=== PATIENT | male | born 1965 | race Caucasian/White ===

== ENCOUNTER 2020-12-30 07:38 | Emergency (ER) | payer OTHER, SELFPAY ==
--- NOTE | 2020-12-30 07:54 | DI.RAD.S_ITS ---
PROCEDURE: XR CHEST 1V INDICATIONS: Chest pain TECHNIQUE: One view of the chest was acquired. COMPARISON: None. FINDINGS: Surgical changes and devices: None. Lungs and pleura: Lungs are clear. No pleural effusions or pneumothorax. Mediastinum: Mediastinal contours appear normal. Heart size is normal. Bones and chest wall: No suspicious bony lesions. Overlying soft tissues appear unremarkable. IMPRESSION: No acute disease. Dictated by: Jv Mallory M.D. on 12/30/2020 at 8:52 Approved by: Jv Mallory M.D. on 12/30/2020 at 8:52
--- NOTE | 2020-12-30 08:04 | ED.GENADULT ---
HPI - General Adult General Chief complaint: Headache Stated complaint: HEADACHE FOR ABOUT 4 DAYS, VOMITING FOR 2 Time Seen by Provider: 12/30/20 07:52 Source: patient Mode of arrival: Ambulatory Limitations: no limitations History of Present Illness HPI narrative: Patient is a 55-year-old male sent over from the walk-in clinic for evaluation of a headache and chest discomfort. He states he has had chest discomfort for the past 3 days. He states this is day 4. He woke up with the discomfort. States it has been constant for this period of time. Does not seem to get worse with palpation or movement. Somewhat worse with deep breathing. During this time he has also had a headache although he states that this has greatly improved since its onset. Describes it as the top of his head. He had a father that had a heart attack in his late 40s. He states he had a workup for his heart approximately 20 years ago. Has had some nausea but no vomiting. No change in bowel habits. Related Data Allergies Allergy/AdvReac Type Severity Reaction Status Date / Time No Known Drug Allergies Allergy Verified 12/30/20 08:12 Review of Systems Constitutional Constitutional: Denies chills, Denies fatigue, Denies fever(s) and Reports headache(s) Eyes Eyes: Denies change in vision ENT Ears, Nose, Mouth, and Throat: Denies vertigo, Denies dizziness, Reports headache(s) and Denies sore throat Cardiovascular Cardiovascular: Reports chest pain, Denies rapid heart rate, Denies irregular heart rhythm and Denies dyspnea Respiratory Respiratory: Denies cough and Denies dyspnea Gastrointestinal Gastrointestinal: Denies abdominal pain, Denies change in bowel habits, Reports nausea and Denies vomiting Genitourinary Genitourinary: Denies dysuria Genitourinary: Denies dysuria Musculoskeletal Musculoskeletal: Denies arthralgias and Denies myalgias Integumentary/Breasts Skin/Breast: Denies rash Neurologic Neurologic: Denies abnormal speech, Denies behavioral changes, Denies vertigo, Denies dizziness and Reports headache(s) Comments: Tinnitus Psychiatric Psychiatric: Denies behavioral changes Endocrine Endocrine: Denies fatigue Hematologic/Lymphatic On Anticoagulants: No Allergic/Immunologic Allergic/Immunologic: Denies urticaria Patient History Medical History Patient denies medical problems Social History lives independently: Yes Smoking Status: Current every day smoker Exam Initial Vital Signs Initial Vital Signs: Vital Signs Temperature 98.6 F 12/30/20 08:06 Pulse Rate 80 12/30/20 08:06 Respiratory Rate 16 12/30/20 08:06 Blood Pressure 178/115 H 12/30/20 08:06 Pulse Oximetry 98 12/30/20 08:06 Const General: cooperative and comfortable Limitations: mental status not altered HENMT Head: normal to inspection and normocephalic Ears: TM's normal bilaterally Eyes General: appearance normal, both eyes and all related structures Chest Chest: No tenderness Resp Effort & Inspection: normal respiratory effort Auscultation: clear to auscultation bilaterally Cardio Rate: regular rate Rhythm: regular rhythm GI Inspection: non-distended Palpation: soft Skin Lesions: no lesions Rashes: no rashes Neuro General: patient alert, patient awake and patient oriented x3 Cognition: normal cognition Speech: speech normal Extrem General: normal to inspection, capillary refill normal and No edema Psych Appearance: grossly normal and well kempt Scores HEART Score Heart Score history: Slightly Suspicious Heart Score EKG: Normal Heart Score Age: 45-64 years old Heart Score risk factors: 1-2 risk factors Heart Score troponin: < or = to normal limit Heart Score Total: 2 Course Orders Ordered: ED Orders 12/30/20 07:54 XR chest 1V Stat 12/30/20 07:59 EKG-12 Lead Stat 12/30/20 08:00 Complete Blood Count AUTO DIFF Stat Comprehensive Metabolic Panel Stat Lipase Stat Partial Thromboplastin Time Stat Prothrombin Time INR Stat Troponin & CK Cardiac Panel Stat 12/30/20 08:22 COVID19 - ADMIT (EARLY [employer] swab/PCR) Stat Discontinued Medications Aspirin (Aspirin 81 Mg Chew Tab) 324 mg PO NOW ONE Stop: 12/30/20 08:08 Last Admin: 12/30/20 08:20 Dose: 324 mg Documented by: GAVINO Vital Signs Vital signs: Vital Signs - 8 hr 12/30/20 08:06 Temperature 98.6 F Pulse Rate 80 Respiratory Rate 16 Blood Pressure 178/115 H Pulse Oximetry 98 Medical Decision Making Lab Data Lab results reviewed: Yes I reviewed the patient's lab results. Result diagrams: 12/30/20 08:00 12/30/20 08:00 Labs: Lab Results 12/30/20 12/30/20 12/30/20 Range/Units 08:00 08:00 08:00 WBC 8.9 (4.5-11.0) X10^3/uL RBC 4.84 (4.5-5.9) X10^6/uL Hgb 16.1 (13.5-17.5) g/dL Hct 46.0 (41-53) % MCV 95.0 (80-100) fL MCH 33.3 (26-34) PG MCHC 35.0 (30-36) % RDW 13.0 (11.6-14.8) % Plt Count 234 (150-400) X10^3/uL Neut % (Auto) 59.6 (50-75) % Lymph % (Auto) 24.2 L (25-40) % [place] % (Auto) 10.0 (3-14) % Eos % (Auto) 5.5 H (2-4) % Baso % (Auto) 0.7 (0-2) % Neut # (Auto) 5300 (1124-4895) /uL Lymph # (Auto) 2200 (3293-9904) /uL [place] # (Auto) 900 (0-900) /uL Eos # (Auto) 500 H (0-450) /uL Baso # (Auto) 100 (0-100) /uL PT 11.0 (10.1-12.7) SECONDS INR 1.0 (0.9-1.3) APTT 34 (26.4-36.2) SECONDS Sodium 136 L (137-145) mmol/L Potassium 3.8 (3.4-5.1) mmol/L Chloride 101 (98-107) mmol/L Carbon Dioxide 26 (22-32) mmol/L BUN 13 (9-20) mg/dL Creatinine 1.06 (0.66-1.25) mg/dL Estimated GFR > 60.0 (>60) mL/min BUN/Creatinine Ratio 12.3 (6-22) Glucose 128 H (70-100) mg/dL Calcium 10.0 (8.4-10.2) mg/dL Total Bilirubin 1.5 H (0.2-1.3) mg/dL AST 38 (17-59) IU/L ALT 31 (<50) IU/L Alkaline Phosphatase 83 (38-126) U/L Total Creatine Kinase (55-170) U/L CK-MB (CK-2) CK-MB (CK-2) Rel Index Troponin I (0.01-0.034) ng/mL Total Protein 7.9 (6.3-8.2) g/dL Albumin 4.7 (3.5-5.0) g/dL Globulin 3.2 (1.7-4.1) g/dL Albumin/Globulin Ratio 1.5 (1.0-2.8) Lipase 86 (23-300) U/L SARS-CoV-2 (PCR) (Negative) 12/30/20 12/30/20 Range/Units 08:00 08:22 WBC (4.5-11.0) X10^3/uL RBC (4.5-5.9) X10^6/uL Hgb (13.5-17.5) g/dL Hct (41-53) % MCV (80-100) fL MCH (26-34) PG MCHC (30-36) % RDW (11.6-14.8) % Plt Count (150-400) X10^3/uL Neut % (Auto) (50-75) % Lymph % (Auto) (25-40) % [place] % (Auto) (3-14) % Eos % (Auto) (2-4) % Baso % (Auto) (0-2) % Neut # (Auto) (2416-1666) /uL Lymph # (Auto) (7483-0744) /uL [place] # (Auto) (0-900) /uL Eos # (Auto) (0-450) /uL Baso # (Auto) (0-100) /uL PT (10.1-12.7) SECONDS INR (0.9-1.3) APTT (26.4-36.2) SECONDS Sodium (137-145) mmol/L Potassium (3.4-5.1) mmol/L Chloride (98-107) mmol/L Carbon Dioxide (22-32) mmol/L BUN (9-20) mg/dL Creatinine (0.66-1.25) mg/dL Estimated GFR (>60) mL/min BUN/Creatinine Ratio (6-22) Glucose (70-100) mg/dL Calcium (8.4-10.2) mg/dL Total Bilirubin (0.2-1.3) mg/dL AST (17-59) IU/L ALT (<50) IU/L Alkaline Phosphatase (38-126) U/L Total Creatine Kinase 71 (55-170) U/L CK-MB (CK-2) TNP CK-MB (CK-2) Rel Index TNP Troponin I < 0.012 (0.01-0.034) ng/mL Total Protein (6.3-8.2) g/dL Albumin (3.5-5.0) g/dL Globulin (1.7-4.1) g/dL Albumin/Globulin Ratio (1.0-2.8) Lipase (23-300) U/L SARS-CoV-2 (PCR) Negative (Negative) Imaging Data Chest x-ray: Radiologist's Impression: [address] [id number] ReportSigned Patient: Vidal HarrisMR#: [id number]: 1965Acct:[id number]/Sex: 55 / MDate of Service: 12/30/20Loc: EDAccession Number: [id number] Procedure: XR chest 1V Ordering Provider: Heriberto Gleason D.O. PROCEDURE: XR CHEST 1V INDICATIONS: Chest pain TECHNIQUE: One view of the chest was acquired. COMPARISON: None. FINDINGS: Surgical changes and devices: None. Lungs and pleura: Lungs are clear. No pleural effusions or pneumothorax. Mediastinum: Mediastinal contours appear normal. Heart size is normal. Bones and chest wall: No suspicious bony lesions. Overlying soft tissues appear unremarkable. IMPRESSION: No acute disease. Dictated by: Jv Mallory M.D. on 12/30/2020 at 8:52 Approved by: Jv Mallory M.D. on 12/30/2020 at 8:52 ECG Data Attestation: I personally reviewed and interpreted this ECG as follows: Prior ECG tracings: not available for review Interpretation: Sinus rhythm Ventricular rate 93 Normal axis Normal QRS Normal QTC No ST T wave changes MDM Narrative Medical decision making narrative: Patient does have a low risk heart score. His EKG is unremarkable. Troponin is negative after 3 days of consistent symptoms. He does not have a primary doctor in the area. He does have a significant family history with a father who at the age of 48 because of an RI. We discussed being admitted to the hospital for further evaluation and stress testing versus being discharged home. We discussed the risks and benefits of each of these. He opted to be discharged home after expressing understanding of the risks and benefits. Low suspicion for dissection. Low suspicion for pulmonary embolism. Patient was given strict return precautions. He expressed understanding and agreement. Discharge Plan Departure Patient Disposition: Home Clinical Impression: Headache, Chest pain, Hypertension Instructions: DI for Chest Pain Activity Restrictions/Additional Instructions: I recommend that you contact the health resources coordinator here at the hospital at [phone]. This individual can help you establish a primary doctor in the area. After our discussion you opted to be discharged home rather than be admitted for further risk stratification testing to include a stress test. I recommend that you establish care with a primary doctor and discuss the indications for this testing as an outpatient. Please return to the emergency department any time for new or worsening symptoms Referrals: Miscellaneous,[facility] [Primary Care Provider] -
[2020-12-30 08:06] VITALS: BP 178/115; PULSE 80; RESP 16; TEMP 37; O2SAT 98; BMI 28.5
[2020-12-30 08:12] LABS: Add Manual Diff / Slide Review NO; Basophils Absolute Auto 100 /uL (0-100); Basophils Percent Auto 0.7 % (0-2); Eosinophils Absolute Auto 500 /uL (0-450); Eosinophils Percent Auto 5.5 % (2-4); Hemoglobin 16.1 g/dL (13.5-17.5); Lymphocytes Absolute Auto 2200 /uL (1100-4500); Lymphocytes Percent Auto 24.2 % (25-40); Mean Corpuscular Hemoglobin 33.3 PG (26-34); Monocytes Absolute Auto 900 /uL (0-900); Neutrophils Absolute Auto 5300 /uL (1500-7000); Neutrophils Percent Auto 59.6 % (50-75); Platelet Count 234 X10^3/uL (150-400); Red Blood Cell Count 4.84 X10^6/uL (4.5-5.9); White Blood Cell Count 8.9 X10^3/uL (4.5-11.0)
[2020-12-30 08:19] LABS: PTT Partial Thromboplastin Tim 34 SECONDS (26.4-36.2)
[2020-12-30] MEDS: ASPIRIN 81 MG CHEW TAB 324 MG PO (08:20)
[2020-12-30 08:22] LABS: Alanine Aminotransferase 31 IU/L (<50); Albumin 4.7 g/dL (3.5-5.0); Albumin Globulin Ratio 1.5 (1.0-2.8); Alkaline Phosphatase 83 U/L (38-126); Aspartate Aminotransferase 38 IU/L (17-59); BUN Creatinine Ratio 12.3 (6-22); Bilirubin Total 1.5 mg/dL (0.2-1.3); Blood Urea Nitrogen 13 mg/dL (9-20); Carbon Dioxide 26 mmol/L (22-32); Chloride 101 mmol/L (98-107); Estimated Glomerular Filt Rate > 60.0 mL/min (>60); Globulin 3.2 g/dL (1.7-4.1); Glucose 128 mg/dL (70-100); HEMOLYSIS < 15 (0-50); Lipase 86 U/L (23-300); Potassium 3.8 mmol/L (3.4-5.1); Sodium 136 mmol/L (137-145); Total Protein 7.9 g/dL (6.3-8.2)
[2020-12-30 08:23] LABS: Creatine Kinase 71 U/L (55-170)
[2020-12-30 08:34] LABS: Troponin I < 0.012 ng/mL (0.01-0.034)
[2020-12-30 08:48] LABS: COVID19 - ADMIT (NP swab/PCR) Negative (Negative)
[2020-12-30 09:30] VITALS: BP 181/93; PULSE 83; RESP 16; O2SAT 96
== END 2020-12-30 09:35 | disposition home or self-care (01) ==
PROVIDERS: Emergency Provider Emergency Medicine
DX: R07.9 Chest pain, unspecified (principal); R51.9 Headache, unspecified; I10 Essential (primary) hypertension; Z20.822 Contact with and (suspected) exposure to COVID-19
CPT/HCPCS: 36415; 71045; 80053; 82550; 83690; 84484; 85025; 85610; 85730; 87635; 93005; 99284; C9803

== ENCOUNTER → 2024-01-18 10:58 | Outpatient (CLI) | payer OTHER, SELFPAY ==
[2024-01-18 11:49] LABS: Influenza A - CEPHEID Flu A NEGATIVE (NEGATIVE); Influenza B - CEPHEID Flu B NEGATIVE (NEGATIVE); Respiratory Syncytial Virus Negative (Negative)
[2024-01-18 12:00] LABS: COVID-19 CEPHEID 4-PLEX PCR Negative (Negative)
== END ==
PROVIDERS: Visit Provider Physician Assistant
DX: R05.1 Acute cough (principal)
CPT/HCPCS: 0241U

== ENCOUNTER → 2024-01-18 11:10 | Outpatient (CLI) | payer OTHER, SELFPAY ==
[2024-01-18 12:41] LABS: Add Manual Diff / Slide Review NO; Basophils Absolute Auto 100 /uL (0-100); Basophils Percent Auto 0.8 % (0-2); Eosinophils Absolute Auto 300 /uL (0-450); Eosinophils Percent Auto 3.5 % (2-4); Hematocrit 43.1 % (41-53); Lymphocytes Absolute Auto 2300 /uL (1100-4500); Lymphocytes Percent Auto 25.2 % (25-40); Mean Corpuscular HGB Conc 34.9 % (30-36); Mean Corpuscular Volume 97.5 fL (80-100); Monocytes Absolute Auto 1100 /uL (0-900); Neutrophils Absolute Auto 5300 /uL (1500-7000); Neutrophils Percent Auto 58.5 % (50-75); Platelet Count 294 X10^3/uL (150-400); Red Blood Cell Count 4.42 X10^6/uL (4.5-5.9); White Blood Cell Count 9.1 X10^3/uL (4.5-11.0)
[2024-01-18 13:07] LABS: Alanine Aminotransferase 20 IU/L (<50); Albumin 4.3 g/dL (3.5-5.0); Albumin Globulin Ratio 1.7 (1.0-2.8); Alkaline Phosphatase 77 U/L (38-126); Aspartate Aminotransferase 26 IU/L (17-59); BUN Creatinine Ratio 10.4 (6-22); Bilirubin Total 0.8 mg/dL (0.2-1.3); Blood Urea Nitrogen 11 mg/dL (9-20); Calcium 9.3 mg/dL (8.4-10.2); Carbon Dioxide 28 mmol/L (22-32); Chloride 101 mmol/L (98-107); Estimated Glomerular Filt Rate > 60 mL/min (>60); Globulin 2.6 g/dL (1.7-4.1); Glucose 103 mg/dL (70-100); HDL Cholesterol 37 mg/dL (40-60); Potassium 4.4 mmol/L (3.4-5.1); Sodium 138 mmol/L (137-145); Total Protein 6.9 g/dL (6.3-8.2); Triglycerides 126 mg/dL (35-150)
[2024-01-18 13:09] LABS: HEMOLYSIS < 15 (0-50)
[2024-01-18 13:22] LABS: Cholesterol 182 mg/dL (140-199); LDL Cholesterol Calculated 120 mg/dL (<100)
== END ==
LOC: LAB 11:11
PROVIDERS: Referring Provider Physician Assistant; Visit Provider Physician Assistant
DX: R05.1 Acute cough (principal); R21 Rash and other nonspecific skin eruption; I10 Essential (primary) hypertension; F17.200 Nicotine dependence, unspecified, uncomplicated; Z12.5 Encounter for screening for malignant neoplasm of prostate
CPT/HCPCS: 0241U; 36415; 80053; 80061; 85025; G0103

== ENCOUNTER 2025-04-08 11:11 | Emergency (ER) | payer OTHER, SELFPAY ==
[2025-04-08] VITALS (15 sets, daily range): BP systolic 148–218; BP diastolic 77–138; PULSE 77–130; RESP 14–24; TEMP 36.6; O2SAT 92–96; BMI 30.5
--- NOTE | 2025-04-08 11:32 | DI.RAD.S_ITS ---
PROCEDURE: XR CHEST 1V INDICATIONS: chest pain TECHNIQUE: One view of the chest was acquired. COMPARISON: [facility], CR, XR CHEST 1V, 12/30/2020, 7:57. FINDINGS: Surgical changes and devices: None. Lungs and pleura: Lungs are clear. No pleural effusions or pneumothorax. Mediastinum: Mediastinal contours appear normal. Heart size is normal. Bones and chest wall: No suspicious bony lesions. Overlying soft tissues appear unremarkable. IMPRESSION: No acute cardiopulmonary abnormality is seen. Dictated by: Tan Foster M.D. on 04/08/2025 at 11:16 Approved by: Tan Foster M.D. on 04/08/2025 at 11:17
--- NOTE | 2025-04-08 11:32 | EKG_ITS ---
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
[2025-04-08] MEDS: METOPROLOL IR 25 MG TABLET 50 MG PO (11:53)
[2025-04-08] MEDS: SODIUM CHLORIDE 0.9% 1,000 ML 1000 ML IV (11:53)
[2025-04-08 11:56] LABS: Alanine Aminotransferase 54 IU/L (<50); Albumin 4.9 g/dL (3.5-5.0); Albumin Globulin Ratio 1.3 (1.0-2.8); Alkaline Phosphatase 88 U/L (38-126); Blood Urea Nitrogen 20 mg/dL (9-20); Calcium 9.9 mg/dL (8.4-10.2); Carbon Dioxide 22 mmol/L (22-32); Chloride 95 mmol/L (98-107); Estimated Glomerular Filt Rate 40 mL/min (>60); Globulin 3.8 g/dL (1.7-4.1); Glucose 124 mg/dL (70-99); HEMOLYSIS 22 (0-50); Lipase 157 U/L (23-300); Magnesium 1.6 mg/dL (1.6-2.3); Potassium 3.8 mmol/L (3.4-5.1); Sodium 132 mmol/L (137-145); Total Protein 8.7 g/dL (6.3-8.2)
[2025-04-08 12:08] LABS: NT-proBNP (BNP-Adult 18+) 217 pg/mL (<125); Troponin I 0.023 ng/mL (0.01-0.034)
[2025-04-08 12:13] LABS: Procalcitonin 0.155 ng/mL (<0.5)
[2025-04-08 12:28] LABS: Add Manual Diff / Slide Review NO; Hematocrit 49.6 % (41-53); Hemoglobin 18.0 g/dL (13.5-17.5); Lymphocytes Absolute Auto 2000 /uL (1100-4500); Mean Corpuscular HGB Conc 36.3 % (30-36); Mean Corpuscular Hemoglobin 35.8 PG (26-34); Mean Corpuscular Volume 98.6 fL (80-100); Platelet Count 174 X10^3/uL (150-400)
[2025-04-08 12:30] LABS: Rouleaux 1+
--- NOTE | 2025-04-08 14:54 | ED_ITS ---
HPI - Arrhythmia/Palpitations General Chief Complaint: Arrhythmia/Palpitations Stated Complaint: Heart palpitations/weakness/vomiting Time Seen by Provider: 04/08/25 11:21 Source: patient Mode of arrival: Ambulatory History of Present Illness HPI narrative: 59-year-old gentleman who does not typically see physicians comes in complaining of nausea and vomiting for the last couple of days intermittent chest pain significant dizziness while he was driving today and so weak that he had trouble getting ready for work. He notes that had a father who of a heart attack at the age of 48 which is a significant turn for him. He has high blood pressure and has chosen not to treat it. On arrival use complaining of some chest tightness and last night enough pain in the left chest that he had a difficult time sleeping. His nausea and vomiting have resolved. He is tachycardic up to 140 and initial blood pressure is 170/100. Related Data Previous Rx's ?Medication ?Instructions ?Recorded albuterol sulfate 90 mcg/actuation 2 puff inhalation Q 4-6H PRN 01/18/24 aerosol inhaler shortness of breath or wheez ing #6.7 grams benzonatate 200 mg capsule 200 mg PO TID PRN cough #30 caps 01/18/24 guaifenesin 1,200 mg tablet, 1,200 mg PO Q12H #30 tabs 01/18/24 extended release 12 hr lisinopril 20 mg tablet 20 mg PO DAILY #30 tabs 12/29 09/22 triamcinolone acetonide 0.1 % See Rx Instructions topi radha BID 01/18/24 topical cream #80 grams metoprolol tartrate 50 mg tablet 50 mg PO BID #180 tab s 04/08/25 Allergies Allergy/AdvReac Type Severity Reaction Status Date / Time No Known Drug Allergies Allergy Verified 04/08/25 11:25 Review of Systems Review of Systems Narrative: Pertinent positive and negative findings as per HPI Patient History Medical History Hypertension Patient denies medical problems Social History lives independently: Yes Smoking Status: Current every day smoker alcohol intake frequency: 0-2 drinks per day Exam Initial Vital Signs Initial Vital Signs: Vital Signs Temperature 98 F 04/08/25 11:17 Pulse Rate 130 H 08/10/25 11:17 Respiratory Rate 22 04/08/25 11:17 Blood Pressure 218/138 H 04/08/25 11:17 Pulse Oximetry 96 04/08/25 11:17 Oxygen Delivery Method Room Air 04/08/25 11:17 General: Healthy appearing, in no acute distress. Able to give a complete and coherent history. Well-nourished well-developed HEENT: Moist mucous membranes, normal sclera with reactive pupils, Neck: No JVD, supple Respiratory: Lungs are clear to auscultation, no wheezing no rales no rhonchi. Full and symmetrical air movement, no reproducible chest pain Cardiac: Tachycardic but otherwise Regular rate and rhythm no murmurs Abdomen: Soft, nontender, no rebound or guarding, no flank pain Skin: Warm and dry, no rashes Neurologic: Grossly neurologically intact with no obvious asymmetries or abnormalities Extremities: No trauma, well perfused Psych: Cooperative, appropriate insight and affect Course Orders Ordered: ED Orders 04/08/25 11:32 XR chest 1V Stat Urinalysis and Microscopic Stat EKG-12 Lead Stat 04/08/25 11:35 Complete Blood Count AUTO DIFF Stat Comprehensive Metabolic Panel Stat D Dimer Stat Lipase Stat Magnesium Stat NT-proBNP (BNP-Adult 18+) Stat Procalcitonin Stat Troponin I Stat Discontinued Medications Sodium Chloride (Normal Saline 0.9%) 1,000 mls @ 1,000 mls/hr IV BOLUS ONE Stop: 04/08/25 12:30 Last Infusion: 04/08/25 13:06 Dose: Infused Documented By: Admin: 04/08/25 11:53 Dose: 1,000 mls/hr Documented By: Metoprolol Tartrate (Metoprolol Ir 25 Mg Tablet) 50 mg PO NOW ONE Stop: 04/08/25 11:35 Last Admin: 04/08/25 11:53 Dose: 50 mg Documented By: Ondansetron HCl (Ondansetron 4 Mg/2 Ml Inj) 4 mg IV NOW ONE Stop: 04/08/25 11:32 Last Admin: 04/08/25 12:07 Dose: Not Given Documented By: Vital Signs Vital signs: Vital Signs - 8 hr 04/08/25 11:17 04/08/25 11:28 04/08/25 11:30 Temperature 98 F Pulse Rate 130 H 115 H 111 H Respiratory Rate 22 23 Blood Pressure 218/138 H Pulse Oximetry 96 95 95 Oxygen Delivery Method Room Air 04/08/25 12:00 04/08/25 12:09 04/08/25 12:09 Temperature Pulse Rate 107 H 97 H Respiratory Rate 22 22 Blood Pressure 173/111 H Pulse Oximetry 92 94 Oxygen Delivery Method 04/08/25 12:30 04/08/25 12:30 04/08/25 13:00 Temperature Pulse Rate 95 H Respiratory Rate 21 Blood Pressure 178/106 H 167/108 H Pulse Oximetry 94 Oxygen Delivery Method 04/08/25 13:00 04/08/25 13:30 04/08/25 13:30 Temperature Pulse Rate 87 85 Respiratory Rate 21 22 Blood Pressure 163/110 H Pulse Oximetry 94 93 Oxygen Delivery Method 04/08/25 14:00 04/08/25 14:00 Temperature Pulse Rate 77 Respiratory Rate 14 Blood Pressure 162/99 H Pulse Oximetry 94 Oxygen Delivery Method MDM - Arrhythmia/Palpitations Lab Data 04/08/25 11:35 04/08/25 11:35 Labs: Lab Results 04/08/25 Range/Units 11:35 WBC 10.6 (4.5-11.0) X10^3/uL RBC 5.03 (4.5-5.9) X10^6/uL Hgb 18.0 H (13.5-17.5) g/dL Hct 49.6 (41-53) % MCV 98.6 (80-100) fL MCH 35.8 H (26-34) PG MCHC 36.3 H (30-36) % RDW 13.3 (11.6-14.8) % Plt Count 174 (150-400) X10^3/uL Neut % (Auto) 69.1 (50-75) % Lymph % (Auto) 18.5 L (25-40) % [place] % (Auto) 11.5 (3-14) % Eos % (Auto) 0.2 L (2-4) % Baso % (Auto) 0.7 (0-2) % Neut # (Auto) 7300 H (8680-5104) /uL Lymph # (Auto) 2000 (2613-9566) /uL [place] # (Auto) 1200 H (0-900) /uL Eos # (Auto) 0 (0-450) /uL Baso # (Auto) 100 (0-100) /uL RBC Morphology See below Rouleaux 1+ H D-Dimer < 215 (<500) ng/ml Sodium 132 L (137-145) mmol/L Potassium 3.8 (3.4-5.1) mmol/L Chloride 95 L (98-107) mmol/L Carbon Dioxide 22 (22-32) mmol/L BUN 20 (9-20) mg/dL Creatinine 1.90 H (0.66-1.25) mg/dL Estimated GFR 40 L (>60) mL/min BUN/Creatinine Ratio 10.5 (6-22) Glucose 124 H (70-99) mg/dL Calcium 9.9 (8.4-10.2) mg/dL Magnesium 1.6 (1.6-2.3) mg/dL Total Bilirubin 2.4 H (0.2-1.3) mg/dL AST 67 H (17-59) IU/L ALT 54 H (<50) IU/L Alkaline Phosphatase 88 (38-126) U/L Troponin I 0.023 (0.01-0.034) ng/mL NT-Pro-B Natriuret Pep 217 H (<125) pg/mL Total Protein 8.7 H (6.3-8.2) g/dL Albumin 4.9 (3.5-5.0) g/dL Globulin 3.8 (1.7-4.1) g/dL Albumin/Globulin Ratio 1.3 (1.0-2.8) Lipase 157 (23-300) U/L Procalcitonin 0.155 (<0.5) ng/mL Imaging Data CT scan - abdomen/pelvis: Radiologist's Impresson: PROCEDURE: CT ABDOMEN PELVIS WO CON INDICATIONS: Abdominal page, vomiting, elevated liver enzymes TECHNIQUE: CT of the abdomen and pelvis was obtained without intravenous contrast. Coronal and sagittal reformats were performed. For radiation dose reduction, the following was used: automated exposure control, adjustment of mA and/or kV according to patient size. COMPARISON: None. FINDINGS: Image quality: Diagnostic. Lower Chest: No significant findings. ABDOMEN: Liver: No contour-deforming mass. Gallbladder: No radiopaque gallstones or wall thickening. Biliary ducts: No biliary dilation. Pancreas: No ductal dilation. Spleen: Size is within normal limits. Adrenal Glands: No adrenal nodules. Kidneys and Ureters: No hydronephrosis. No contour-deforming mass. Stomach and Bowel: Normal colonic caliber, without significant wall thickening. Normal appendix Peritoneum: No abnormal intraperitoneal fluid. No free air. Ventral Wall: No significant hernia. Abdominal Nodes: No retroperitoneal or mesenteric adenopathy by size criteria. Vessels: Aorta and inferior vena cava are normal in size. PELVIS: Pelvic Organs: Unremarkable. Bladder: Unremarkable. Pelvic Nodes: No enlarged lymph nodes. Miscellaneous: No inguinal hernias are seen. Bones: No aggressive osseous abnormality. IMPRESSION: No acute findings in the abdomen or pelvis to explain patient's symptoms. Dictated by: Tan Foster M.D. on 04/08/2025 at 14:43 MDM Narrative Medical decision making narrative: CC: Chest pain for the last 18 hours, nausea vomiting for the last 3 days Complicating co-morbidities: Does not see a regular physician. Strong family history for coronary disease, known personal history of hypertension that he chooses not to treat with medications Data collected from: patient Differential considered: Dehydration secondary to nausea and vomiting, acute kidney failure, significant electrolyte abnormalities, acute coronary syndrome, STEMI, pneumomediastinum or pneumothorax Exam documented above, pertinent findings include: Patient appears quite well he quite literally jumps up on the bed to help facilitate exam and workup. You appears well-perfused no reproducible pain, significantly hypertensive and tachycardic Lab Test results independently reviewed as above. Pertinent findings: CBC shows a hemoglobin of 18 suggesting mild dehydration. No leukocytosis Chemistries are notable for a creatinine at 1.9 BUN of 20 Bilirubin is elevated at 2.4, AST of 67 ALT of 54 ProBNP is minimally elevated at 217 Procalcitonin is not elevated Lipase is normal Troponin is 0.023 which is still within normal range, repeat is even lower Independently reviewed EKG: Sinus tachycardia at a rate of 116 without ischemic changes Repeat EKG shows sinus rhythm at a rate of 79, no acute ischemic changes Imaging studies independently reviewed: Chest x-ray is unremarkable Treatments: Fluids, oral metoprolol Re-evaluations: 3pm re-evaluated patient. Heart rate has come down with fluid resuscitation, blood pressures come down with the metoprolol, discussed elevated liver enzymes. He is not having specific abdominal pain but the increased nausea that is caused enough vomiting to cause acute kidney injury is of concern in light of the elevated liver enzymes. I will be doing a CT scan of the abdomen without contrast given a GFR of 40., awaiting repeat troponin. Repeat EKG is unremarkable Discussion: 59-year-old gentleman who comes in complaining of palpitations, significantly tachycardic and hypertensive. Acute kidney injury. All of this occurred after 3 days of severe vomiting and diarrhea. Fluids have been replaced, electrolytes are not significantly abnormal. I suspect the acute kidney injury is secondary to dehydration. This will need follow up. Regarding his hypertension in the past he has been on lisinopril, with his acute kidney injuries I am going to have him change to metoprolol tartrate 50 mg twice a day. We will need follow up with primary care. With repeat labs maybe able to transition back to lisinopril. He did have slightly elevated bilirubin AST and ALT. CT scan does not show any biliary, hepatic or pancreatic abnormalities. Recommend rechecking this may be related to whatever caused the significant vomiting over the last couple of days. No evidence of acute coronary syndrome, his heart rate slowed with fluid resuscitation, his blood pressure continues to come down as he feels better. At this time he is safe for discharge, we had a long discussion regarding actually taking care of his health and following up with the primary care doctor. We will ask him to contact [facility] for his in finding and a Band- [employer] with a rider. Discharge Plan Departure Patient Disposition: Home Clinical Impression: Acute kidney injury, Sinus tachycardia Nausea & vomiting Qualifiers: Vomiting type: unspecified Qualified Code(s): R11.2 - Nausea with vomiting, unspecified Hypertension Qualifiers: Hypertension type: primary hypertension Qualified Code(s): I10 - Essential (primary) hypertension Instructions: DI for High Blood Pressure, DI for Acute Kidney Injury Activity Restrictions/Additional Instructions: Thank you for coming in today I believe that would ever caused the severe vomiting was the reason for the majority of your symptoms. I suspect that you had a viral syndrome, cause significant dehydration, which is cause some mild kidney failure and the dehydration caused the significant rapid heart rate which is what you noticed. All of the symptoms together contributed to the overall fatigue. To make it worse, your blood pressure was significantly elevated With rehydration you are feeling better, your heart rate has come down nicely. We did a CT scan to prove that the slightly elevated liver enzymes were not due to gallbladder, liver or pancreatic abnormalities. The CT scan was reassuringly normal including your kidneys. I have given you a prescription for metoprolol 50 mg twice a day for your blood pressure. You do need to buy a blood pressure cuff and I would recommend checking your blood pressure every day approximately 3 or 4 hours after you take your morning metoprolol if possible. You will need these blood pressure readings to meet your new primary care physician and help decide whether this is the appropriate medication for you This prescription was sent to [facility] in [place] When you do meet your new primary care physician, you may want to have blood rechecked to make sure that your liver enzymes are coming down and your kidney function has returned to normal There was no sign of a heart attack today. With your cardiac history and history of hypertension having a outpatient stress test maybe very appropriate to understand your risk for future heart attack If you find that you are getting worse or develop any new symptoms, please feel free to return to the emergency department for further evaluation. Prescriptions: New metoprolol tartrate 50 mg tablet 50 mg PO BID Qty: 180 0RF No Action triamcinolone acetonide 0.1 % cream See Rx Instructions topical BID Qty: 80 0RF Rx Instructions: 1 mg topically bid TOP BID, no more than 2 weeks benzonatate 200 mg capsule 200 mg PO TID PRN (Reason: cough) Qty: 30 0RF guaifenesin 1,200 mg tablet extended release 12hr 1,200 mg PO Q12H Qty: 30 0RF albuterol sulfate 90 mcg/actuation HFA aerosol inhaler 2 puff inhalation Q4-6H PRN (Reason: shortness of breath or wheezing) Qty: 6.7 0RF lisinopril 20 mg tablet 20 mg PO DAILY Qty: 30 0RF Stand Alone Forms: Patient Portal/API
--- NOTE | 2025-04-08 15:00 | EKG_ITS ---
[address] [address] Test Date: 2025-04-08 Pat Name: Vidal Harris Department: [facility] Room: Gender: Male Safety Spec: VANESSA : 1965 Requested By: Order Number: [id number] Reading MD: Farhat Lira Measurements Intervals [place] Rate: 79 P: 26 VT: 140 QRS: 52 QRSD: 82 T: 57 QT: 382 QTc: 438 Interpretive Statements Normal sinus rhythm Nonspecific T wave abnormality Electronically Signed On 04-08-2025 18:53:16 PDT by Farhat Lira
--- NOTE | 2025-04-08 15:11 | DI.CT.S_ITS ---
PROCEDURE: CT ABDOMEN PELVIS WO CON INDICATIONS: Abdominal page, vomiting, elevated liver enzymes TECHNIQUE: CT of the abdomen and pelvis was obtained without intravenous contrast. Coronal and sagittal reformats were performed. For radiation dose reduction, the following was used: automated exposure control, adjustment of mA and/or kV according to patient size. COMPARISON: None. FINDINGS: Image quality: Diagnostic. Lower Chest: No significant findings. ABDOMEN: Liver: No contour-deforming mass. Gallbladder: No radiopaque gallstones or wall thickening. Biliary ducts: No biliary dilation. Pancreas: No ductal dilation. Spleen: Size is within normal limits. Adrenal Glands: No adrenal nodules. Kidneys and Ureters: No hydronephrosis. No contour-deforming mass. Stomach and Bowel: Normal colonic caliber, without significant wall thickening. Normal appendix Peritoneum: No abnormal intraperitoneal fluid. No free air. Ventral Wall: No significant hernia. Abdominal Nodes: No retroperitoneal or mesenteric adenopathy by size criteria. Vessels: Aorta and inferior vena cava are normal in size. PELVIS: Pelvic Organs: Unremarkable. Bladder: Unremarkable. Pelvic Nodes: No enlarged lymph nodes. Miscellaneous: No inguinal hernias are seen. Bones: No aggressive osseous abnormality. IMPRESSION: No acute findings in the abdomen or pelvis to explain patient's symptoms. Dictated by: Tan Foster M.D. on 04/08/2025 at 14:43 Approved by: Tan Foster M.D. on 04/08/2025 at 14:47
[2025-04-08 15:26] LABS: Troponin I 0.018 ng/mL (0.01-0.034)
== END 2025-04-08 17:15 | disposition home or self-care (01) ==
PROVIDERS: Emergency Provider Emergency Medicine
DX: N17.9 Acute kidney failure, unspecified (principal); R11.2 Nausea with vomiting, unspecified; R00.0 Tachycardia, unspecified; I10 Essential (primary) hypertension; F17.200 Nicotine dependence, unspecified, uncomplicated; Z82.49 Family history of ischemic heart disease and other diseases of the circulatory system
CPT/HCPCS: 36415; 71045; 74176; 80053; 83690; 83735; 83880; 84145; 84484; 85025; 85379; 93005; 96360; 99284